=== PATIENT | male | born 1975 | race Caucasian/White ===

== ENCOUNTER 2017-10-06 02:05 | Inpatient (IN) | payer OTHER ==
[2017-10-06] MEDS ORDERED: DEXTROSE 50% 25 GM / 50ML DISP.SYRIN. IV (03:45)
[2017-10-06] MEDS ORDERED: ONDANSETRON PF 4 MG/2 ML VIAL. IV (03:45)
[2017-10-06] MEDS ORDERED: MORPHINE SULFATE 4 MG/ML DISP.SYRIN. IV (03:45)
[2017-10-06] MEDS ORDERED: ACETAMINOPHEN 325 MG TABLET. PO (03:45)
[2017-10-06] MEDS: AMPICILLIN/SULBACTAM IV Push 3 GM VIAL. IVP ×4 (05:18→23:01)
[2017-10-06] MEDS ORDERED: AMPICILLIN/SULBACTAM 1.5 GM in IV NORMAL SALINE 50ML 50 ML IV (06:00)
[2017-10-06 07:30] LABS: ADD MAN DIFF? NO
[2017-10-06 07:43] LABS: BASO % 1 % (0-3); EOS # 0.1 x10^3/uL (0.0-0.7); EOS % 1 % (0-3); HEMATOCRIT 31.7 % (39.0-53.0); LYMPH # 1.7 x10^3/uL (1.0-4.8); LYMPH % 21 % (24-48); MEAN CORPUSCULAR HEMOGLOBIN 31 pg (25-35); MEAN CORPUSCULAR HGB CONC 35 g/dL (31-37); MEAN CORPUSCULAR VOLUME 88 fL (79-100); MONO % 13 % (0-9); NEUT # 5.2 x10^3uL (1.8-7.7); NEUT % 64 % (31-73); PLATELET COUNT 318 x10^3/uL (140-400); RED BLOOD COUNT 3.59 x10^6/uL (4.30-5.70); RED CELL DISTRIBUTION WIDTH 13.5 % (11.5-14.5); WHITE BLOOD COUNT 8.1 x10^3/uL (4.0-11.0)
[2017-10-06 08:00] LABS: ALBUMIN 2.6 g/dL (3.4-5.0); ALBUMIN/GLOBULIN RATIO 0.7 (1.0-1.7); ALK PHOS 93 U/L (46-116); ALT (SGPT) 12 U/L (16-63); ANION GAP 9 (6-14); AST (SGOT) 9 U/L (15-37); BLOOD UREA NITROGEN 12 mg/dL (8-26); BUN/CREATININE RATIO 13 (6-20); CALCIUM 8.2 mg/dL (8.5-10.1); CARBON DIOXIDE 26 mmol/L (21-32); CHLORIDE 109 mmol/L (98-107); CREATININE 0.9 mg/dL (0.7-1.3); GLUCOSE 219 mg/dL (70-99); POTASSIUM 4.1 mmol/L (3.5-5.1); SODIUM 144 mmol/L (136-145); TOTAL BILIRUBIN 0.2 mg/dL (0.2-1.0); TOTAL PROTEIN 6.3 g/dL (6.4-8.2)
[2017-10-06 08:29] LABS: POC GLUCOSE 176 mg/dL (70-99)
[2017-10-06] MEDS: LACTOBACILLUS RHAMNOSUS GG 1 CAPSULE. PO ×2 (09:02→20:35)
[2017-10-06] MEDS: LISINOPRIL 2.5 MG TABLET PO (09:03)
[2017-10-06] MEDS: INSULIN ASPART 300 UNITS/3 ML INSULN.PEN SQ ×6 (09:11→17:53)
[2017-10-06 10:05] LABS: SEDIMENTATION RATE 41 (0-15)
[2017-10-06 11:54] LABS: POC GLUCOSE 60 mg/dL (70-99)
[2017-10-06 12:25] LABS: POC GLUCOSE 70 mg/dL (70-99)
[2017-10-06] MEDS: GADOBUTROL 10 MMOL/10 ML VIAL IV (16:52)
[2017-10-06 17:28] LABS: POC GLUCOSE 201 mg/dL (70-99)
[2017-10-06] MEDS: ENOXAPARIN 40 MG/0.4 ML SYRINGE. SQ (19:00)
[2017-10-06 20:21] LABS: POC GLUCOSE 124 mg/dL (70-99)
[2017-10-06] MEDS: INSULIN DETEMIR 300 UNITS/3 ML INSULN.PEN. SQ (20:38)
[2017-10-07] MEDS: AMPICILLIN/SULBACTAM IV Push 3 GM VIAL. IVP ×4 (05:36→23:35)
[2017-10-07 07:27] LABS: POC GLUCOSE 79 mg/dL (70-99)
[2017-10-07] MEDS: INSULIN ASPART 300 UNITS/3 ML INSULN.PEN SQ ×7 (07:30→21:11)
[2017-10-07] MEDS ORDERED: LIDOCAINE 1% PF 2 ML VIAL. ID (08:15)
[2017-10-07] MEDS ORDERED: fentaNYL PF VIAL 100 MCG/2 ML VIAL IV ×2 (08:15)
[2017-10-07] MEDS ORDERED: ONDANSETRON PF 4 MG/2 ML VIAL. IV (08:15)
[2017-10-07] MEDS ORDERED: MORPHINE SULFATE 4 MG/ML DISP.SYRIN. IV (08:15)
[2017-10-07] MEDS ORDERED: PROCHLORPERAZINE 10 MG/2 ML VIAL. IV (08:15)
[2017-10-07] MEDS: LACTOBACILLUS RHAMNOSUS GG 1 CAPSULE. PO ×3 (08:53→20:37)
[2017-10-07] MEDS: LISINOPRIL 2.5 MG TABLET PO ×2 (08:53→14:07)
[2017-10-07] MEDS: IV RINGERS,LACTATED 1000ML 1,000 ML IV (10:41)
[2017-10-07 10:47] LABS: POC GLUCOSE 95 mg/dL (70-99)
[2017-10-07] MEDS ORDERED: fentaNYL PF VIAL 100 MCG/2 ML VIAL (11:04)
[2017-10-07] MEDS ORDERED: LIDOCAINE 1% PF 5 ML VIAL. (11:04)
[2017-10-07] MEDS ORDERED: PROPOFOL 20 ML IV (11:04)
[2017-10-07] MEDS ORDERED: DEXAMETHASONE SOD PHOS 20 MG/5 ML VIAL. (11:35)
[2017-10-07] MEDS ORDERED: SEVOFLURANE 16 TO 30 MINUTES. IH (11:35)
[2017-10-07] MEDS ORDERED: ONDANSETRON PF 4 MG/2 ML VIAL. (11:49)
[2017-10-07 12:21] LABS: POC GLUCOSE 93 mg/dL (70-99)
[2017-10-07] MEDS: ASCORBIC ACID 500 MG TABLET PO (14:07)
[2017-10-07] MEDS: MULTIVITAMIN with MINERAL TABLET. PO (14:07)
[2017-10-07 16:19] LABS: POC GLUCOSE 217 mg/dL (70-99)
[2017-10-07] MEDS: VANCOMYCIN 2 GM in IV DEXTROSE 5% 500 ML IV (16:36)
[2017-10-07] MEDS: VANCOMYCIN PER PHARMACY MC (17:46)
[2017-10-07] MEDS: ENOXAPARIN 40 MG/0.4 ML SYRINGE. SQ (19:00)
[2017-10-07] MEDS: INSULIN DETEMIR 300 UNITS/3 ML INSULN.PEN. SQ (20:41)
[2017-10-07 22:54] LABS: POC GLUCOSE 273 mg/dL (70-99)
[2017-10-08] MEDS: VANCOMYCIN 1.25 GM in IV DEXTROSE 5 %-0.2 % NACL 250 ML IV ×3 (00:06→16:58)
[2017-10-08] MEDS: AMPICILLIN/SULBACTAM IV Push 3 GM VIAL. IVP ×4 (05:38→23:35)
[2017-10-08 07:34] LABS: POC GLUCOSE 243 mg/dL (70-99)
[2017-10-08] MEDS: MULTIVITAMIN with MINERAL TABLET. PO (07:56)
[2017-10-08] MEDS: LACTOBACILLUS RHAMNOSUS GG 1 CAPSULE. PO ×2 (07:56→20:54)
[2017-10-08] MEDS: ASCORBIC ACID 500 MG TABLET PO (07:56)
[2017-10-08] MEDS: LISINOPRIL 2.5 MG TABLET PO (07:57)
[2017-10-08] MEDS: INSULIN ASPART 300 UNITS/3 ML INSULN.PEN SQ ×7 (07:59→20:58)
[2017-10-08 11:34] LABS: POC GLUCOSE 170 mg/dL (70-99)
[2017-10-08 15:47] LABS: ADD MAN DIFF? NO
[2017-10-08 15:53] LABS: BASO % 0 % (0-3); EOS % 0 % (0-3); HEMATOCRIT 36.3 % (39.0-53.0); HEMOGLOBIN 12.1 g/dL (13.0-17.5); LYMPH # 2.6 x10^3/uL (1.0-4.8); LYMPH % 22 % (24-48); MEAN CORPUSCULAR HEMOGLOBIN 30 pg (25-35); MEAN CORPUSCULAR HGB CONC 33 g/dL (31-37); MEAN CORPUSCULAR VOLUME 89 fL (79-100); MONO # 0.9 x10^3/uL (0.0-1.1); MONO % 8 % (0-9); NEUT # 7.9 x10^3uL (1.8-7.7); NEUT % 69 % (31-73); PLATELET COUNT 373 x10^3/uL (140-400); RED CELL DISTRIBUTION WIDTH 13.8 % (11.5-14.5); WHITE BLOOD COUNT 11.4 x10^3/uL (4.0-11.0)
[2017-10-08 16:09] LABS: POC GLUCOSE 131 mg/dL (70-99)
[2017-10-08 16:16] LABS: VANC TR 14.1 mcg/mL (10.0-20.0)
[2017-10-08] MEDS: VANCOMYCIN PER PHARMACY MC (16:45)
[2017-10-08 16:54] LABS: ALBUMIN 2.7 g/dL (3.4-5.0); ALBUMIN/GLOBULIN RATIO 0.7 (1.0-1.7); ALK PHOS 96 U/L (46-116); ALT (SGPT) 11 U/L (16-63); ANION GAP 10 (6-14); AST (SGOT) 8 U/L (15-37); BLOOD UREA NITROGEN 14 mg/dL (8-26); BUN/CREATININE RATIO 16 (6-20); CALCIUM 8.7 mg/dL (8.5-10.1); CARBON DIOXIDE 30 mmol/L (21-32); CHLORIDE 107 mmol/L (98-107); CREATININE 0.9 mg/dL (0.7-1.3); GLUCOSE 133 mg/dL (70-99); POTASSIUM 3.8 mmol/L (3.5-5.1); SODIUM 147 mmol/L (136-145); TOTAL BILIRUBIN 0.1 mg/dL (0.2-1.0); TOTAL PROTEIN 6.8 g/dL (6.4-8.2)
[2017-10-08] MEDS: ERGOCALCIFEROL (VITAMIN D2) 50,000 UNIT CAPSULE. PO (16:58)
[2017-10-08] MEDS: ENOXAPARIN 40 MG/0.4 ML SYRINGE. SQ (17:05)
[2017-10-08] MEDS: INSULIN DETEMIR 300 UNITS/3 ML INSULN.PEN. SQ (20:58)
[2017-10-08 21:14] LABS: POC GLUCOSE 169 mg/dL (70-99)
[2017-10-09] MEDS: VANCOMYCIN 1.25 GM in IV DEXTROSE 5 %-0.2 % NACL 250 ML IV ×2 (00:08→08:45)
[2017-10-09] MEDS: AMPICILLIN/SULBACTAM IV Push 3 GM VIAL. IVP (05:28)
[2017-10-09 06:09] LABS: ADD MAN DIFF? NO
[2017-10-09 06:22] LABS: BASO % 0 % (0-3); EOS % 1 % (0-3); HEMATOCRIT 34.1 % (39.0-53.0); HEMOGLOBIN 11.7 g/dL (13.0-17.5); LYMPH # 2.4 x10^3/uL (1.0-4.8); LYMPH % 29 % (24-48); MEAN CORPUSCULAR HEMOGLOBIN 30 pg (25-35); MEAN CORPUSCULAR HGB CONC 34 g/dL (31-37); MEAN CORPUSCULAR VOLUME 89 fL (79-100); MONO # 0.8 x10^3/uL (0.0-1.1); MONO % 10 % (0-9); NEUT # 5.1 x10^3uL (1.8-7.7); NEUT % 61 % (31-73); PLATELET COUNT 339 x10^3/uL (140-400); RED BLOOD COUNT 3.85 x10^6/uL (4.30-5.70); RED CELL DISTRIBUTION WIDTH 13.8 % (11.5-14.5); WHITE BLOOD COUNT 8.4 x10^3/uL (4.0-11.0)
[2017-10-09] MEDS ORDERED: BUPIVACAINE 0.5% 50 ML VIAL. (06:37)
[2017-10-09] MEDS ORDERED: LIDOCAINE 1% PF 30 ML VIAL. (06:37)
[2017-10-09 06:43] LABS: ANION GAP 7 (6-14); BLOOD UREA NITROGEN 14 mg/dL (8-26); CALCIUM 8.8 mg/dL (8.5-10.1); CARBON DIOXIDE 32 mmol/L (21-32); CHLORIDE 107 mmol/L (98-107); CREATININE 0.9 mg/dL (0.7-1.3); GLUCOSE 233 mg/dL (70-99); POTASSIUM 4.1 mmol/L (3.5-5.1); SODIUM 146 mmol/L (136-145)
[2017-10-09] MEDS ORDERED: ONDANSETRON PF 4 MG/2 ML VIAL. IV (07:00)
[2017-10-09] MEDS ORDERED: LIDOCAINE 1% PF 2 ML VIAL. ID (07:00)
[2017-10-09] MEDS ORDERED: MORPHINE SULFATE 4 MG/ML DISP.SYRIN. IV (07:00)
[2017-10-09] MEDS ORDERED: PROCHLORPERAZINE 10 MG/2 ML VIAL. IV (07:00)
[2017-10-09] MEDS ORDERED: fentaNYL PF VIAL 100 MCG/2 ML VIAL IV ×2 (07:00)
[2017-10-09] MEDS: LACTOBACILLUS RHAMNOSUS GG 1 CAPSULE. PO ×2 (07:09→21:23)
[2017-10-09] MEDS: MULTIVITAMIN with MINERAL TABLET. PO (07:10)
[2017-10-09] MEDS: ENOXAPARIN 40 MG/0.4 ML SYRINGE. SQ (07:10)
[2017-10-09] MEDS: ASCORBIC ACID 500 MG TABLET PO (07:10)
[2017-10-09] MEDS: INSULIN ASPART 300 UNITS/3 ML INSULN.PEN SQ ×7 (07:10→21:28)
[2017-10-09 08:22] LABS: POC GLUCOSE 223 mg/dL (70-99)
[2017-10-09] MEDS: LISINOPRIL 2.5 MG TABLET PO (08:45)
[2017-10-09] MEDS: cefTRIAXone SODIUM 2 GM in IV DEXTROSE 5% 100 ML IV (09:30)
[2017-10-09] MEDS: cefTRIAXone IV Push 2 GM VIAL. IVP (10:00)
[2017-10-09] MEDS: IV RINGERS,LACTATED 1000ML 1,000 ML IV (11:02)
[2017-10-09] MEDS ORDERED: PROPOFOL 20 ML IV (11:29)
[2017-10-09] MEDS ORDERED: MIDAZOLAM HCL/PF 2 MG/2 ML VIAL. (11:29)
[2017-10-09] MEDS ORDERED: fentaNYL PF VIAL 100 MCG/2 ML VIAL (11:29)
[2017-10-09 12:24] LABS: POC GLUCOSE 173 mg/dL (70-99)
[2017-10-09] MEDS ORDERED: DEXAMETHASONE SOD PHOS 20 MG/5 ML VIAL. (12:25)
[2017-10-09] MEDS ORDERED: ONDANSETRON PF 4 MG/2 ML VIAL. (12:25)
[2017-10-09] MEDS ORDERED: SEVOFLURANE 31 TO 60 MINUTES. IH (12:25)
[2017-10-09 16:09] LABS: POC GLUCOSE 236 mg/dL (70-99)
[2017-10-09] MEDS: HYDROcodone/APAP 5/325MG 1 TAB TABLET PO (16:51)
[2017-10-09 21:06] LABS: POC GLUCOSE 280 mg/dL (70-99)
[2017-10-09] MEDS: INSULIN DETEMIR 300 UNITS/3 ML INSULN.PEN. SQ (21:27)
[2017-10-10 04:18] LABS: ADD MAN DIFF? NO
[2017-10-10 04:22] LABS: BASO # 0.1 x10^3/uL (0.0-0.2); BASO % 1 % (0-3); EOS % 0 % (0-3); HEMATOCRIT 34.1 % (39.0-53.0); HEMOGLOBIN 11.4 g/dL (13.0-17.5); LYMPH # 2.1 x10^3/uL (1.0-4.8); LYMPH % 17 % (24-48); MEAN CORPUSCULAR HEMOGLOBIN 29 pg (25-35); MEAN CORPUSCULAR HGB CONC 34 g/dL (31-37); MEAN CORPUSCULAR VOLUME 88 fL (79-100); MONO # 0.9 x10^3/uL (0.0-1.1); MONO % 7 % (0-9); NEUT # 9.4 x10^3uL (1.8-7.7); NEUT % 75 % (31-73); PLATELET COUNT 378 x10^3/uL (140-400); RED BLOOD COUNT 3.89 x10^6/uL (4.30-5.70); RED CELL DISTRIBUTION WIDTH 13.7 % (11.5-14.5); WHITE BLOOD COUNT 12.6 x10^3/uL (4.0-11.0)
[2017-10-10 04:39] LABS: ALBUMIN 2.6 g/dL (3.4-5.0); ALBUMIN/GLOBULIN RATIO 0.7 (1.0-1.7); ALK PHOS 89 U/L (46-116); ALT (SGPT) 10 U/L (16-63); ANION GAP 5 (6-14); AST (SGOT) 7 U/L (15-37); BLOOD UREA NITROGEN 15 mg/dL (8-26); BUN/CREATININE RATIO 19 (6-20); CALCIUM 8.7 mg/dL (8.5-10.1); CARBON DIOXIDE 30 mmol/L (21-32); CHLORIDE 104 mmol/L (98-107); CREATININE 0.8 mg/dL (0.7-1.3); GFR 106.5; GLUCOSE 232 mg/dL (70-99); POTASSIUM 4.1 mmol/L (3.5-5.1); SODIUM 139 mmol/L (136-145); TOTAL BILIRUBIN 0.2 mg/dL (0.2-1.0); TOTAL PROTEIN 6.6 g/dL (6.4-8.2)
[2017-10-10 07:58] LABS: POC GLUCOSE 204 mg/dL (70-99)
[2017-10-10] MEDS: LACTOBACILLUS RHAMNOSUS GG 1 CAPSULE. PO (08:22)
[2017-10-10] MEDS: ASCORBIC ACID 500 MG TABLET PO (08:22)
[2017-10-10] MEDS: MULTIVITAMIN with MINERAL TABLET. PO (08:22)
[2017-10-10] MEDS: LISINOPRIL 2.5 MG TABLET PO (08:24)
[2017-10-10] MEDS: INSULIN ASPART 300 UNITS/3 ML INSULN.PEN SQ ×4 (08:28→12:09)
[2017-10-10] MEDS: HYDROcodone/APAP 5/325MG 1 TAB TABLET PO (08:32)
[2017-10-10 10:41] LABS: POC GLUCOSE 154 mg/dL (70-99)
[2017-10-10] MEDS: metroNIDAZOLE 500 MG TABLET PO (11:04)
== END 2017-10-10 15:05 | disposition home or self-care (01) | DRG 617 ==
LOC: 5 NORTH 02:05
PROC: 0QBN0ZX Excision of Right Metatarsal, Open Approach, Diagnostic (ICD-10-PCS; principal; 2017-10-07 11:26)
PROC: 0JBQ0ZZ Excision of Right Foot Subcutaneous Tissue and Fascia, Open Approach (ICD-10-PCS; 2017-10-07 11:26)
PROC: 2W5 Placement, Anatomical Regions, Removal (ICD-10-PCS; 2017-10-07 11:26)
PROC: 0JDQ0ZZ Extraction of Right Foot Subcutaneous Tissue and Fascia, Open Approach (ICD-10-PCS; 2017-10-07 11:26)
PROC: 0Y6P0Z1 Detachment at Right 1st Toe, High, Open Approach (ICD-10-PCS; 2017-10-07 11:26)
DX: E10.621 Type 1 diabetes mellitus with foot ulcer (principal); T81.30XA Disruption of wound, unspecified, initial encounter; E10.40 Type 1 diabetes mellitus with diabetic neuropathy, unspecified; M86.8X7 Other osteomyelitis, ankle and foot; L03.115 Cellulitis of right lower limb; E10.69 Type 1 diabetes mellitus with other specified complication; L97.519 Non-pressure chronic ulcer of other part of right foot with unspecified severity; Z79.4 Long term (current) use of insulin; Z83.3 Family history of diabetes mellitus; Z89.411 Acquired absence of right great toe; B96.20 Unspecified Escherichia coli [E. coli] as the cause of diseases classified elsewhere
CPT/HCPCS: 36415; 73720; 80048; 80053; 80202; 82962; 83036; 85025; 85651; 87071; 87075; 87205; 93926; A9585; J0295; J1100; J1815; J2250; J2405; J2704; J3010; J3370; J3490; J7120